=== PATIENT | female | born 1985 | race Caucasian/White ===

== ENCOUNTER 2019-02-22 21:58 | Inpatient (IN) | payer OTHER ==
[~2019-02-22] VITALS: Ht 167.6 cm; Wt 107.5 kg
--- NOTE | 2019-02-22 22:31 | NUR ---
RN OPENING NOTES PT ARRIVED TO UNIT (DIRECT ADMIT FROM [facility]) VIA GURNEY BY EMS. A/OX4. ON ROOM AIR, BREATHING EVEN AND UNLABORED. DENIES SOB, ABDOMINAL PAIN NOTED 12/26 AT THIS TIME. IV TO RAC PATENT AND INTACT. BED IN LOW/LOCKED POSITION WITH CALL LIGHT IN REACH. HOB SEMI FOWLERS. ORIENTED PT TO ROOM AND CALL LIGHT. BILATERAL UPPER SIDE RAILS IN PLACE. BELONGING LIST COMPLETED. MRSA SWAB DONE. WILL CONTINUE TO MONITOR
[2019-02-22 22:33] VITALS: BP 113/67
--- NOTE | 2019-02-22 22:40 | NUR ---
RN NOTES PT DENIES HX OF SEIZURES. STATES HER DOCTOR RULED OUT SEIZURES WITHIN THIS PAST YEAR.
--- NOTE | 2019-02-22 23:09 | NUR ---
RN NOTES PAGED EPIC FOR ADMITTING ORDERS. PT DOES NOT KNOW DOSES/FREQUENCY OF HOME MEDICATIONS. WILL ASK TO TEXT LIST OF HOME MEDS
[2019-02-23] MEDS ORDERED: ZOLPIDEM TARTRATE 5 MG TABLET PO PRN (01:00)
[2019-02-23] MEDS ORDERED: Z GUARD REMEDY 2 OZ OINT TP PRN (01:00)
[2019-02-23] MEDS ORDERED: MAGNESIUM HYDROXIDE 30 ML UDC PO PRN (01:00)
[2019-02-23] MEDS ORDERED: ACETAMINOPHEN 325 MG TABLET PO PRN (01:00)
[2019-02-23] MEDS ORDERED: MORPHINE SULFATE INJ 2 MG/ML DISP.SYRIN IV PRN (01:00)
[2019-02-23] MEDS: IV NS 0.9% 1,000 ML IV PRN ×2 (01:05→15:27)
--- NOTE | 2019-02-23 01:25 | NUR ---
MS/RN NOTES PT C/O VERTIGO WHILE LAYING DOWN. NOTIFIED NEWSPAPER ILLUSTRATOR, [place], WITH ORDERS FOR MECLIZINE 25MG PO Q6H PRN. ORDERS NOTED AND CARRIED OUT.
[2019-02-23] MEDS ORDERED: MECLIZINE HCL 12.5 MG TABLET PO PRN (01:30)
[2019-02-23] MEDS: ONDANSETRON HCL/PF 4 MG/2 ML VIAL IVP PRN ×2 (03:04→13:19)
[2019-02-23] MEDS: HYDROCODONE/APAP 5/325MG 1 EACH TABLET PO PRN ×2 (03:10→09:53)
--- NOTE | 2019-02-23 03:15 | NUR ---
MS/RN NOTES PT C/O 04/25 LLQ PAIN AND NAUSEA. ADMINISTERED PRN ZOFRAN AND NORCO ORDERED. WILL MONITOR FOR EFFECTIVENESS
--- NOTE | 2019-02-23 07:25 | NUR ---
MS RN INITIAL NOTES Report received at bedside. Patient received in bed, sleeping, easily aroused, comfortable. No complaints of pain at the moment. Not in any type of distress. Safety measures in place. Will continue to monitor and assess patient
--- NOTE | 2019-02-23 07:34 | NUR ---
MS/RN CLOSING NOTES PT AWAKE, ON THE PHONE. ON ROOM AIR, BREATHING EVEN AND UNLABORED. DENIES SOB AND ABDOMINAL PAIN AT THIS TIME. NO N/V/D. IV TO RAC PATENT AND INTACT RUNNING IVF ORDERED. NO BM DURING SHIFT. NO SIGNIFICANT CHANGES OVERNIGHT. KEPT PT COMFORTABLE DURING SHIFT. ALL NEEDS MET. BED IN LOW/LOCKED POSITION WITH CALL LIGHT IN REACH. BILATERAL UPPER SIDE RAILS IN PLACE WITH HOB ELEVATED. ENDORSED TO DAY SHIFT RN [place]RA[place].
[2019-02-23 08:00] VITALS: BP 99/61
[2019-02-23] MEDS ORDERED: OMEP20CA10 PO (10:22)
[2019-02-23] MEDS ORDERED: FLUT9.9S NS (10:22)
[2019-02-23] MEDS ORDERED: LORA10TA68 PO (10:22)
[2019-02-23] MEDS ORDERED: IBUP-1957 PO (10:22)
[2019-02-23 13:18] LABS: CALCIUM, SERUM 8.2 mg/dL (8.5-10.1); CREATININE 0.9 mg/dL (0.6-1.3); PHOSPHORUS 3.1 mg/dL (2.5-4.9)
[2019-02-23 13:19] LABS: BASOPHILS % (AUTO) 0.5 % (0.0-2.0); EOSINOPHILS % (AUTO) 6.5 % (0.0-6.0); HEMATOCRIT 36 % (33-45); HEMOGLOBIN 12.3 g/dL (11.5-14.8); LYMPHOCYTES % (AUTO) 32.7 % (20.0-44.0); MEAN CORPUSCULAR HGB CONC 34 g/dl (31.0-36.0); MEAN CORPUSCULAR VOLUME 84 fL (82-100); MONOCYTES # (AUTO) 0.4 /CMM (0.1-1.30); NEUTROPHILS # (AUTO) 3.2 /CMM (1.8-8.9); NEUTROPHILS % (AUTO) 53.3 % (43.0-81.0); PLATELET COUNT (AUTO) 417 /CMM (150-450); RED BLOOD CELL COUNT(AUTO) 4.34 MIL/uL (4.0-5.2)
--- NOTE | 2019-02-23 13:23 | NUR ---
MS RN PRN NOTES Patient complained of abdominal 8/10 pain. Morphine given via IV as ordered. Pt requested for nausea meds prior to morphine administration. Will continue to monitor and assess patient.
--- NOTE | 2019-02-23 13:45 | NUR ---
MS RN NOTES Sulaiman at bedside
[2019-02-23] MEDS ORDERED: HYDROMORPHONE 1 MG/1 ML DISP.SYRIN IV PRN (14:00)
--- NOTE | 2019-02-23 14:45 | NUR ---
MS RN NOTES UA collected. ground source heat pump technician (Lorraine) made aware of sample availability.
[2019-02-23 16:56] LABS: APPEARANCE,URINE CLEAR (CLEAR); BILIRUBIN,URINE NEGATIVE (NEGATIVE); BLOOD, URINE NEGATIVE Ery/uL (NEGATIVE); COLOR,URINE YELLOW (YELLOW); KETONES,URINE NEGATIVE (NEGATIVE); LEUKOCYTE ESTERASE ,URINE NEGATIVE (NEGATIVE); NITRITE, URINE NEGATIVE (NEGATIVE); PROTEIN,URINE NEGATIVE (NEGATIVE); UGLUCOSE NEGATIVE (NEGATIVE); UROBILINOGEN,URINE 0.2 EU/dL (0.2)
--- NOTE | 2019-02-23 17:24 | NUR ---
MS RN NOTES Patient was transported to Radiology for CT scan in stable condition. Accompanied by transport staff
--- NOTE | 2019-02-23 17:53 | NUR ---
MS RN CLOSING NOTES Patient remained in bed, intermittently sleeping, comfortable. Alert and oriented x4, verbally responsive. All due meds given and tolerated. Complained of pain with help of pain mgmt. No SOB/labored breathing noted. Not in any type of distress. Safety measures in place. Bed in locked and lowest position with call light within reach. Patient kept clean, dry and comfortable. CT Scan done - awaiting for results. All anticipated needs provided and met. Continue hospitalization and clear liquid diet until further instruction. Will endorse to oncoming shift nurse.
[2019-02-23 18:31] VITALS: BP 111/71
--- NOTE | 2019-02-23 18:39 | NUR ---
MS RN NOTES CT scan result available. Sulaiman made aware. GI consult to follow
--- NOTE | 2019-02-23 19:13 | NUR ---
MS RN RECEIVE PT IN BED. A/O X3, RESPIRATIONS EVEN AND UNLABORED, NO SOB NOTED, NO DISTRESS, SAFETY MEASURES IN PLACE. WILL CONTINUE TO MONITOR.
--- NOTE | 2019-02-23 19:40 | NUR ---
Pt transferred from room 314-1 to room 200 all belongings with pt. pt agreed to go at room 200 pt stable
--- NOTE | 2019-02-23 19:45 | NUR ---
PT STARTED TO COMPLAIN THAT GI DOCTOR HASN'T SEEN HER SINCE AM PT UPSET AND TOLD ME THAT DAY SHIFT KEPT ON TELLING HER THAT GI DOCTOR WILL COME TO SEE HER. WILL FF UP WITH GI DOCTOR
--- NOTE | 2019-02-23 20:00 | NUR ---
EXPLAINED PT ABOUT WHAT PRIMO BERTRAND TOLD ME PT WAS VERY UPSET AND WANTED TO GO AMA REFUSES TO SIGN EVERYTHING PT ALSO COMPLAINED THAT DAY SHIFT TAKES TOO LONG TO RESPOND TO HER CALL LIGHT AND SHE'S WAITING TOO MUCH, AND SHE'S HUNGRY. SHE KEEPS ON WAITING THE GI DOCTOR. PT IS FRUSTRATED AND JUST WANTED TO LEAVE AMA DESPITE EXPLAINING RISKS AND BENEFITS DRAINMAN AWARE. (CHUCK)
--- NOTE | 2019-02-23 20:40 | NUR ---
AMA DISCHARGE PATIENT LEFT AT 2039, SIGNED AGAINST MEDICAL ADVISE PT VERY UPSET BECAUSE SHE HASN'T BEEN SEEN BY GI DOCTOR DESPITE EXPLAINING RISKS AND BENEFITS PT ALSO COMPLAIN ABOUT DAY SHIFT BECAUSE SHE WASN'T ATTENDED THAT MUCH AND IT TAKES TOO LONG FOR THEM TO RESPOND FOR HER CALL LIGHT. 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 VS 125/81 TEMP 97.6 R 18 PULSE 66 O2 SAT 97% R.A
--- NOTE | 2019-02-23 20:50 | NUR ---
PAGED DELANO VERMA TO NOTIFY PT AMA AWAITING CALL BACK
--- NOTE | 2019-02-23 20:51 | NUR ---
CALLED ELZAARTEM TILLMAN SPOKE TO HER REGARDING PT AND CT ABD RESULTS PER ELZA SHE WAS NOT NOTIFIED ABOUT THIS PT AND THEY JUST PAGED HER 45 MINS AGO BY DAY SHIFT RN SHE IS DONE WITH HER ROUNDS AND THAT SHE CANNOT SEE THE PT UNTIL TOMORROW READ CT ABDOMEN RESULTS TO ELZA AND SAID IT IS NOT EMERGENCY. TOLD HER PT WANTS TO GO AMA IF HASNT BEEN SEEN PER ELZA "OKAY". Addendum: 02/23/19 at 2054 by KASSIE JAMESON RN CALLED AT 1953 SPOKE TO HER
--- NOTE | 2019-02-23 22:30 | NUR ---
BAYRON RAY PT A.MLeniA
== END 2019-02-23 20:40 | disposition home or self-care (01) | DRG 392 ==
LOC: TELE 21:58 → MED 02-23 09:48 → MEDSG2 02-23 20:17
PROVIDERS: ADMIT Nurse Practitioner Acute Care; ATTEND Nurse Practitioner Acute Care
DX: R10.9 Unspecified abdominal pain (principal); D68.59 Other primary thrombophilia; G43.909 Migraine, unspecified, not intractable, without status migrainosus; F41.9 Anxiety disorder, unspecified; F32.9 Major depressive disorder, single episode, unspecified; E66.9 Obesity, unspecified; Z68.38 Body mass index [BMI] 38.0-38.9, adult
CPT/HCPCS: 36415; 80048-TC; 80061-TC; 81000-TC; 83735-TC; 84100-TC; 84703-TC; 85025-TC; 87081-TC; G0378; J2270; J2405; J7030; J8597